=== PATIENT | female | born 2005 | race African-American/Black ===

== ENCOUNTER 2023-08-25 14:28 | Observation (INO) | payer BC, OTHER ==
[~2023-08-25] VITALS: Ht 170.2 cm; Wt 61.2 kg
--- NOTE | 2023-08-25 15:33 | ED General ---
General Chief Complaint: General Problems/Pain Stated Complaint: BLOOD CLOT Nursing Triage Note: pt ambulatory to room with pt [facility] coach. pt states she consents to her graduation coach being at bedside. this rn notifies pt that visitor can be asked to leave at anytime. pt reports she collapsed at a cross country meet in [place] and was admitted to [facility]. pt was discharged from hospital today and traveled home to [facility]. pt reports the hospital called her mother and told her they found a "blood clot in her atrium and to immediately come back to the hospital. pt denies any cp, sob, or pain anywhere. pt is a&ox4, speech normal on arrival. this rn obtained consent for medical release during triage. 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 She was running in a cross-country meet yesterday when she experienced a syncopal episode after crossing the finish line. According to her graduation coach who accompanies her, she was unresponsive after the collapse. He reports her "blood pressure was very low" during triage at the meet. She was essentially unresponsive for several minutes and then was rather confused with nonsensical speech for several minutes after regaining consciousness. When the EMS staff came to pick her up, she was rather agitated and combative. She was taken to [facility] where she was found to have rhabdomyolysis. They were concerned about acute kidney injury developing and therefore admitted her overnight. She was released this morning and was traveling back to her home in [place], [place] where she attends [employer]. She received a call back from [facility] stating that her echocardiogram was read as abnormal. That report reads as follows: "There is a large independently moving structure/membrane within the right atrium. Appears to have attachment points within the right atrium. One appears to be just above the tricuspid valve along the atrial septum. This extends to the lateral posterior wall on the right atrium." I was able to contact Dr. Ayala who was on her care team in [place]. He reports that they requested she come back to the facility for a GIGI. He additionally reported the patient was hydrated for treatment of rhabdomyolysis. Her initial CK was 22,000 and was trending down prior to discharge. Patient has no complaints at present. She denies chest pain, shortness of breath, unusual soreness, etc. She has no history of cardiac disease and no significant family history of cardiac problems or early sudden cardiac . She denies any drug or alcohol use. She denies as she just finished her menstrual cycle. She has had prior episodes of lesser severity. At her last cross-country meet she had a more mild incident that was considered heat exhaustion. She did not lose consciousness during that episode. She reports an additional syncopal episode that occurred during a cross-country meet when she was a sophomore in high school. Allergies and Home Medications Allergies Coded Allergies: No Known Drug Allergies (Unverified , 08/25/23) Patient Home Medication List Home Medication List Reviewed: Yes Review of Systems Review of Systems Constitutional: no symptoms reported EENTM: no symptoms reported Respiratory: no symptoms reported Cardiovascular: see HPI Gastrointestinal: no symptoms reported Genitourinary: no symptoms reported : No Musculoskeletal: see HPI Skin: no symptoms reported Psychiatric/Neurological: See HPI Hematologic/Lymphatic: No Symptoms Reported Immunological/Allergic: no symptoms reported Past Hecbokr-Swxqki-Czaxsh Hx Patient Social History Tobacco Use?: No Use of E-Cig and/or Vaping dev: No Substance use?: No Alcohol Use?: No Past Medical History Surgeries: No Respiratory: No Cardiac: No : No Last Menstrual Period: Aug 18, 2023 Reproductive Disorders: No Genitourinary: No Gastrointestinal: No Musculoskeletal: No Endocrine: No HEENT: No Cancer: No Psychosocial: No Integumentary: No Physical Exam Vital Signs Vital Signs - First Documented 08/25/23 14:40 Temp 37.4 Pulse 70 Resp 22 B/P (MAP) 140/81 (100) Pulse Ox 100 Capillary Refill : Height, Weight, BMI Height: '" Weight: lbs. oz. kg; 20.00 BMI Method: General Appearance: No Apparent Distress, WD/WN HEENT: PERRL/EOMI, Normal ENT Inspection, Other (Oropharynx somewhat dry) Neck: Normal Inspection; No JVD Respiratory: Lungs Clear, Normal Breath Sounds, No Accessory Muscle Use; No Crackles Cardiovascular: Regular Rate, Rhythm, No Edema, Systolic Murmur (Slight murmur at the left upper sternal border) Gastrointestinal: Non Tender, Soft; No Distended Extremity: Normal Inspection, Non Tender, No Pedal Edema Neurologic/Psychiatric: Alert, Oriented x3, No Motor/Sensory Deficits, Normal Mood/Affect, automobile radiator mechanic II-XII Norm as Tested Skin: Normal Color, Warm/Dry Progress/Results/Core Measures Suspected Sepsis SIRS Temperature: Pulse: 70 Respiratory Rate: 22 Laboratory Tests 08/25/23 14:53: White Blood Count 6.9 Blood Pressure 140 /81 Mean: 100 Laboratory Tests 08/25/23 14:53: Creatinine 0.86, Platelet Count 260, Total Bilirubin 1.0 Results/Orders Lab Results Laboratory Tests Test 08/25/23 14:53 08/25/23 18:16 Range/Units White Blood Count 6.9 4.3-11.0 10^3/uL Red Blood Count 5.07 3.80-5.11 10^6/uL Hemoglobin 11.6 11.5-16.0 g/dL Hematocrit 36 35-52 % Mean Corpuscular Volume 72 L 80-99 fL Mean Corpuscular Hemoglobin 23 L 25-34 pg Mean Corpuscular Hemoglobin Concent 32 32-36 g/dL Red Cell Distribution Width 14.0 10.0-14.5 % Platelet Count 260 130-400 10^3/uL Mean Platelet Volume 11.9 9.0-12.2 fL Immature Granulocyte % (Auto) 0 % Neutrophils (%) (Auto) 57 42-75 % Lymphocytes (%) (Auto) 33 12-44 % Monocytes (%) (Auto) 7 0-12 % Eosinophils (%) (Auto) 3 0-10 % Basophils (%) (Auto) 0 0-10 % Neutrophils # (Auto) 3.9 1.8-7.8 10^3/uL Lymphocytes # (Auto) 2.3 1.0-4.0 10^3/uL Monocytes # (Auto) 0.5 0.0-1.0 10^3/uL Eosinophils # (Auto) 0.2 0.0-0.3 10^3/uL Basophils # (Auto) 0.0 0.0-0.1 10^3/uL Immature Granulocyte # (Auto) 0.0 0.0-0.1 10^3/uL D-Dimer 0.44 0.00-0.49 UG/ML Sodium Level 140 135-145 MMOL/L Potassium Level 3.4 L 3.6-5.0 MMOL/L Chloride Level 109 H 98-107 MMOL/L Carbon Dioxide Level 20 L 21-32 MMOL/L Anion Gap 11 5-14 MMOL/L Blood Urea Nitrogen 7 7-18 MG/DL Creatinine 0.86 0.60-1.30 MG/DL Estimat Glomerular Filtration Rate 100 BUN/Creatinine Ratio 8 Glucose Level 116 H 70-105 MG/DL Calcium Level 9.9 8.5-10.1 MG/DL Corrected Calcium 9.6 8.5-10.1 MG/DL Magnesium Level 1.8 1.6-2.4 MG/DL Total Bilirubin 1.0 0.1-1.0 MG/DL Aspartate Amino Transf (AST/SGOT) 409 H 5-34 U/L Alanine Aminotransferase (ALT/SGPT) 182 H 0-55 U/L Alkaline Phosphatase 43 40-136 U/L Total Creatine Kinase 65011 H 29-168 U/L Total Protein 7.0 6.4-8.2 GM/DL Albumin 4.4 3.2-4.5 GM/DL Serum Test, Qualitative NEGATIVE NEGATIVE Urine Color YELLOW Urine Clarity CLEAR Urine pH 5.5 5-9 Urine Specific [place] 1.010 L 1.016-1.022 Urine Protein TRACE NEGATIVE Urine Glucose (UA) NEGATIVE NEGATIVE Urine Ketones NEGATIVE NEGATIVE Urine Nitrite NEGATIVE NEGATIVE Urine Bilirubin NEGATIVE NEGATIVE Urine Urobilinogen 0.2 < = 1.0 MG/DL Urine Leukocyte Esterase NEGATIVE NEGATIVE Urine RBC (Auto) 1+ H NEGATIVE Urine RBC RARE /HPF Urine WBC 0-2 /HPF Urine Squamous Epithelial Cells 0-2 /HPF Urine Crystals NONE /LPF Urine Bacteria TRACE /HPF Urine Casts NONE /LPF Urine Mucus NEGATIVE /LPF Urine Culture Indicated NO Urine Opiates Screen NEGATIVE NEGATIVE Urine Oxycodone Screen NEGATIVE NEGATIVE Urine Methadone Screen NEGATIVE NEGATIVE Urine Propoxyphene Screen NEGATIVE NEGATIVE Urine Barbiturates Screen NEGATIVE NEGATIVE Ur Tricyclic Antidepressants Screen NEGATIVE NEGATIVE Urine Phencyclidine Screen NEGATIVE NEGATIVE Urine Amphetamines Screen NEGATIVE NEGATIVE Urine Methamphetamines Screen NEGATIVE NEGATIVE Urine Benzodiazepines Screen NEGATIVE NEGATIVE Urine Cocaine Screen NEGATIVE NEGATIVE Urine Cannabinoids Screen NEGATIVE NEGATIVE My Orders Orders - CHERRI TREVINO MD Cbc And Automated Diff (08/25/23 15:33) Comprehensive Metabolic Panel (08/25/23 15:33) Creatine Kinase (08/25/23 15:33) Hcg,Qualitative Serum (08/25/23 15:33) Magnesium (08/25/23 15:33) Ekg Tracing (08/25/23 15:34) Monitor-Rhythm Ecg Trace Only (08/25/23 15:34) Lactated Ringers 1,000 Ml (Lactated Ring (08/25/23 16:45) Drug Screen Stat (Urine) (08/25/23 18:04) Ua Culture If Indicated (08/25/23 18:04) Fibrin Degradation Products (08/25/23 18:42) Lactated Ringers 1,000 Ml (Lactated Ring (08/25/23 19:30) Ed Admission (Communication) (08/25/23 20:02) Medications Given in ED Current Medications Medications Dose Ordered Sig/Arturo Route Start Time Stop Time Status Last Admin Dose Admin Lactated Ringer's 1,000 ml @ 0 mls/hr Q0M ONCE IV 08/25/23 16:45 08/25/23 16:46 DC 08/25/23 16:57 999 MLS/HR Lactated Ringer's 1,000 ml @ 0 mls/hr Q0M ONCE IV 08/25/23 19:30 08/25/23 19:31 DC 08/25/23 19:42 1,000 MLS/HR Vital Signs/I&O 08/25/23 08/25/23 14:40 20:05 Temp 37.4 Pulse 70 57 Resp 22 B/P (MAP) 140/81 (100) 125/81 Pulse Ox 100 100 Capillary Refill : Blood Pressure Mean: 100 Progress Note #1: Time: 17:44 Progress Note Patient has been interviewed and examined. I also interviewed her cross-country graduation coach, Senior Accountant Cpa Gricel Jeffries, who witnessed the event and has attended to her care since then. Exam is relatively unremarkable except oropharynx is slightly dry and there is a slight murmur at the upper left sternal margin. Labs were obtained, reviewed, and interpreted by me. CBC was unremarkable except for low MCV. CMP was notable for slight hypokalemia with potassium of 3.4, normal renal function, elevated AST at 409, elevated ALT of 182, normal alk phos and bilirubin. Serum test was negative. CK was markedly elevated at 32,165. Patient is receiving 1 L of LR. After discussing this case with Dr. Ayala in [place], I consulted Dr. Méndez, express manager on-call at our facility. He is uncertain of the etiology of the abnormal echocardiogram report. He is concerned a congenital abnormality may be involved. He is therefore recommending transfer to a higher level of care with advanced cardiac speci alists. He believes [facility] would be a reasonable option. I have discussed the situation with the patient, her mother, and her graduation coach. We have elected to proceed with [facility] due to their level of advanced cardiac care and proximity to [place]. Because of patient's severe rhabdomyolysis, transfer to an appropriate facility should be pursued tonight. Patient is agreeable. I have c ontacted the [facility] transfer center and am awaiting a callback. Progress Note #2: Progress Note I received a call back from Dr. Connell, express manager at [facility] who has a focus on congenital abnormalities. Based on the description of the echocardiogram, she believes the abnormality in the right atrium is likely an incidental finding not related to patient's symptoms. We discussed the potential for this abnormality to be a clot. She believes this is unlikely unless the patient has PE. She discerned the patient did not need emergent transfer to a tertiary care facility. She plans to follow-up with the patient on an outpatient basis to schedule GIGI. Patient should have activity restrictions in the meantime with no running or other strenuous activity. Based on this conversation, I contacted hospital team in [place] again to inquire about work-up for PE. Neither D-dimer nor CT angiogram had been performed in [place]. I added a D-dimer which was negative, effectively ruling out PE and thrombus. Since transfer was declined by [facility], I sought admission with Dr. Grant, hospitalist, at this facility to treat the rhabdomyolysis and monitor the elevated transaminases. Dr. Grant was agreeable as was the patient. Bridging orders were written. A second liter of LR was ordered to start in the emergency room per Dr. Grant's request. Further labs including urinalysis and urine toxicology screen were negative upon my review and interpretation. Since transfer is not excepted, I did inquire again with Dr. Méndez regarding performing GIGI locally. He is deferring to [facility] due to their expertise and congenital heart abnormalities. ECG Initial ECG Impression Date: Aug 25, 2023 Initial ECG Impression Time: 15:55 Initial ECG Rate: 66 Initial ECG Rhythm: Normal Sinus Initial ECG Intervals: Normal Initial ECG Impression: Normal Comment Normal sinus rhythm with no ST elevation or depression. No abnormal intervals or axis deviation. Departure Communication (Admissions) Time/Spoke to Admitting Phy: 19:20 Dr. Grant Impression Primary Impression: Syncope and collapse Additional Impressions: Abnormal echocardiogram Rhabdomyolysis Qualified Codes: T79.6XXD - Traumatic ischemia of muscle, subsequent encounter Elevated liver transaminase level Disposition: ADMITTED INPATIENT Condition: Stable Admissions Decision to Admit Reason: Admit from ER (General) Decision to Admit/Date: Aug 25, 2023 Time/Decision to Admit Time: 19:20 Departure-Patient Inst. Referrals: NO,LOCAL PHYSICIAN (PCP) Primary Care Physician CHERRI TREVINO MD Aug 25, 2023 15:33
[2023-08-25 15:42] LABS: BASOPHILS % (AUTO) 0 % (0-10); EOSINOPHILS # (AUTO) 0.2 10^3/uL (0.0-0.3); EOSINOPHILS % (AUTO) 3 % (0-10); HEMATOCRIT 36 % (35-52); HEMOGLOBIN 11.6 g/dL (11.5-16.0); LYMPHOCYTES # (AUTO) 2.3 10^3/uL (1.0-4.0); LYMPHOCYTES % (AUTO) 33 % (12-44); MEAN CORPUSCULAR HEMOGLOBIN 23 pg (25-34); MEAN CORPUSCULAR HGB CONC 32 g/dL (32-36); MEAN CORPUSCULAR VOLUME 72 fL (80-99); MEAN PLATELET VOLUME 11.9 fL (9.0-12.2); MONOCYTES # (AUTO) 0.5 10^3/uL (0.0-1.0); MONOCYTES % (AUTO) 7 % (0-12); NEUTROPHILS # (AUTO) 3.9 10^3/uL (1.8-7.8); NEUTROPHILS % (AUTO) 57 % (42-75); PLATELET COUNT 260 10^3/uL (130-400); WHITE BLOOD COUNT 6.9 10^3/uL (4.3-11.0)
[2023-08-25 15:45] LABS: ALBUMIN 4.4 GM/DL (3.2-4.5); POTASSIUM 3.4 MMOL/L (3.6-5.0)
[2023-08-25 15:46] LABS: CALCIUM 9.9 MG/DL (8.5-10.1)
[2023-08-25 15:51] LABS: CREATININE SERUM 0.86 MG/DL (0.60-1.30)
[2023-08-25 15:53] LABS: MAGNESIUM 1.8 MG/DL (1.6-2.4)
[2023-08-25] MEDS ORDERED: LACTATED RINGERS 1,000 ML 1,000 ML IV ONE ×2 (16:45→19:30)
[2023-08-25 18:37] LABS: CLARITY,URINE CLEAR; COLOR,URINE YELLOW; GLUCOSE, URINE (UA) NEGATIVE (NEGATIVE); KETONES,URINE NEGATIVE (NEGATIVE); NITRITE,URINE NEGATIVE (NEGATIVE); PH,URINE 5.5 (5-9); PROTEIN,URINE TRACE (NEGATIVE)
[2023-08-25 18:38] LABS: BACTERIA,URINE TRACE /HPF; BILIRUBIN,URINE NEGATIVE (NEGATIVE); LEUKOCYTE ESTERASE ,URINE NEGATIVE (NEGATIVE); RBC,URINE RARE /HPF; WBC,URINE 0-2 /HPF
[2023-08-25 18:39] LABS: SQUAMOUS EPITHELIAL CELL,UR 0-2 /HPF
[2023-08-25 18:41] LABS: AMPHETAMINE SCREEN, URINE NEGATIVE (NEGATIVE); BARBITURATE SCREEN URINE NEGATIVE (NEGATIVE); CANNABINOID SCREEN, URINE NEGATIVE (NEGATIVE); COCAINE SCREEN URINE NEGATIVE (NEGATIVE); METHADONE STAT NEGATIVE (NEGATIVE); OPIATE SCREEN URINE NEGATIVE (NEGATIVE); OXYCODONE STAT NEGATIVE (NEGATIVE); PROPOXYPHENE STAT NEGATIVE (NEGATIVE); TRICYCLIC ANTIDEPRESSANTS SCRE NEGATIVE (NEGATIVE)
[2023-08-25 20:54] VITALS: BP 133/78
[2023-08-25] MEDS: LACTATED RINGERS 1,000 ML 1,000 ML IV SCH (21:00)
[2023-08-25] MEDS ORDERED: ONDANSETRON INJECTION 4 MG/2 ML (SDV) IV PRN ×2 (21:45→22:00)
[2023-08-25] MEDS ORDERED: ANTACID SUSPENSION 30 ML UDC PO PRN (22:00)
[2023-08-25] MEDS ORDERED: LACTULOSE SYRUP 10GM/15ML 30ML UDC PO PRN (22:00)
[2023-08-25] MEDS ORDERED: MELATONIN 3 MG TABLET PO PRN (22:00)
[2023-08-25] MEDS ORDERED: ONDANSETRON 4 MG ORAL DISSOLVE TABLET PO PRN (22:00)
[2023-08-25] MEDS ORDERED: CALCIUM CARBONATE 500 MG CHEW TABLET PO PRN (22:00)
[2023-08-25] MEDS ORDERED: diphenhydrAMINE 25 MG TABLET PO PRN (22:00)
[2023-08-25] MEDS ORDERED: ACETAMINOPHEN 325 MG TABLET PO PRN (22:00)
[2023-08-25] MEDS ORDERED: BISACODYL 10 MG SUPPOSITORY PR PRN (22:00)
[2023-08-25] MEDS ORDERED: MILK OF MAGNESIA 400 MG/5 ML 30 ML UDC PO PRN (22:00)
[2023-08-25] MEDS ORDERED: diphenhydrAMINE INJ 50 MG/ML VIAL IVP PRN (22:00)
[2023-08-25 23:32] VITALS: BP 106/65
[2023-08-26] MEDS: LACTATED RINGERS 1,000 ML 1,000 ML IV SCH ×5 (01:18→20:56)
[2023-08-26 03:39] VITALS: BP 112/71
[2023-08-26 04:59] LABS: BASOPHILS % (AUTO) 0 % (0-10); EOSINOPHILS # (AUTO) 0.2 10^3/uL (0.0-0.3); EOSINOPHILS % (AUTO) 3 % (0-10); HEMATOCRIT 30 % (35-52); HEMOGLOBIN 9.8 g/dL (11.5-16.0); LYMPHOCYTES # (AUTO) 3.7 10^3/uL (1.0-4.0); LYMPHOCYTES % (AUTO) 46 % (12-44); MEAN CORPUSCULAR HEMOGLOBIN 23 pg (25-34); MEAN CORPUSCULAR HGB CONC 33 g/dL (32-36); MEAN CORPUSCULAR VOLUME 71 fL (80-99); MEAN PLATELET VOLUME 11.5 fL (9.0-12.2); MONOCYTES # (AUTO) 0.5 10^3/uL (0.0-1.0); MONOCYTES % (AUTO) 7 % (0-12); NEUTROPHILS # (AUTO) 3.6 10^3/uL (1.8-7.8); NEUTROPHILS % (AUTO) 45 % (42-75); PLATELET COUNT 221 10^3/uL (130-400)
[2023-08-26 05:10] LABS: INR 1.1 (0.8-1.4); PROTHROMBIN TIME PATIENT 13.9 SEC (12.2-14.7)
[2023-08-26 05:22] LABS: ALBUMIN 3.3 GM/DL (3.2-4.5); BILIRUBIN,TOTAL 0.9 MG/DL (0.1-1.0); CALCIUM 8.5 MG/DL (8.5-10.1); CREATININE SERUM 0.87 MG/DL (0.60-1.30); MAGNESIUM 1.6 MG/DL (1.6-2.4); POTASSIUM 3.5 MMOL/L (3.6-5.0); TOTAL PROTEIN 5.5 GM/DL (6.4-8.2)
[2023-08-26 07:43] VITALS: BP 121/75
[2023-08-26] MEDS: DOCUSATE SODIUM 100 MG CAPSULE PO SCH ×2 (08:37→20:36)
[2023-08-26] MEDS: SENNOSIDES 8.6 MG TABLET PO SCH ×2 (08:37→20:36)
--- NOTE | 2023-08-26 11:00 | History & Physical-Hospitalist ---
History of Present Illness HPI/Chief Complaint Patient is a 17-year-old -[place] female who presented to the hospital due to abnormal echo report. 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 Reportedly she had just met a personal record on her 5K but then passed out shortly after. She reports that she was told she had a seizure though records from the ER states she was admitted for rhabdomyolysis. She was discharged home because her labs are looking better though I am not been able to see these. On her way home she was called by the hospital and told that her echo was abnormal. Per ER report her echo report read as ""There is a large independently moving structure/membrane within the right atrium. Appears to have attachment points within the right atrium. One appears to be just above the tricuspid valve along the atrial septum. This extends to the lateral posterior wall on the right atrium." She was also found to still have an eleva rachel CK. Dr. Coyle was consulted and initially recommended referring patient to for structural heart specialty evaluation but after the ER spoke to they declined the transfer and recommended outpatient follow-up. Because her CK was still elevated she was admitted for IV fluids. This morning she reports feeling better and has no achiness or stiffness. She is eating and has no nausea or vom iting with that. Source: patient Date Seen 08/26/23 Time Seen by a Provider: 10:55 Attending Physician Rima,Local Physician PCP Admitting Physician: Najma Grant MD Attending Physician: Najma Grant MD Referring Physician Date of Admission Aug 25, 2023 at 20:08 Home Medications & Allergies Home Medications Reviewed patient Home Medication Reconciliation performed by pharmacy medication reconciliations landfill gas technician and/or nursing. Patients Allergies have been reviewed. Allergies Allergies Coded Allergies No Known Drug Allergies (Eybozbfkce35/1/23) Past Pusfrph-Tkrcau-Mqlnnz Hx Patient Social History Employed/Student: student, full-time Tobacco Use?: No Smoking Status: Never a Smoker Smokeless Tobacco Frequency: Never a User Use of E-Cig and/or Vaping dev: No Substance use?: No Alcohol Use?: No Pt feels they are or have been: No Immunizations Up To Date Tetanus Booster (TDap): Unknown Current Status Advance Directives: No Communicates: Verbally Primary Language: Maltese Preferred Spoken Language: Maltese Is interpretation needed?: No Review of Systems Constitutional: see HPI Physical Exam Physical Exam Vital Signs Vital Signs - First Documented 08/25/23 08/25/23 14:40 20:54 Temp 37.4 Pulse 70 Resp 22 B/P (MAP) 140/81 (100) Pulse Ox 100 O2 Delivery Room Air Capillary Refill : Height, Weight, BMI Height: '" Weight: lbs. oz. kg; 21.23 BMI Method: General Appearance: No Apparent Distress, WD/WN Respiratory: Lungs Clear, No Respiratory Distress Cardiovascular: Regular Rate, Rhythm, No Murmur Gastrointestinal: Normal Bowel Sounds, Soft Neurologic/Psychiatric: Alert, Oriented x3 Results Results/Procedures Labs Laboratory Tests 08/25/23 14:53 08/26/23 04:42 Patient resulted labs reviewed. Assessment/Plan Admission Diagnosis Rhabdomyolysis Admission Status: Observation Assessment and Plan Rhabdomyolysis CK up to 32k last night Down to 15k Continue IVF and trend Creatinine normal Hopefully home tomorrow if doing well Abnormal echo Cardiology consulted, appreciate recs D-dimer negative Spoke with Dr Méndez who will see in consultation Attempt to get her appt with for structural heart team Discussed need to avoid activity until after [facility] exam SRIKANTH LEE MD Aug 26, 2023 11:00
[2023-08-26] MEDS ORDERED: IBUP-30 PO (11:02)
[2023-08-26 11:46] VITALS: BP 124/73
--- NOTE | 2023-08-26 15:19 | Consultation-Cardiology ---
HPI-Cardiology Cardiology Consultation: Date of Consultation 08/26/23 Time Seen by a Provider: 09:40 Date of Admission Attending Physician Rima,Local Physician Admitting Physician Admitting Physician: Najma Grant MD Attending Physician: Arely Dhaliwal MD Consulting Physician BREEZY GARCIA MD, MA, FACP, FACC, [facility], [facility] HPI: Chief Complaint: Reason for Card consult: Abnormal echo in [place], [place] 17 yo cierra who passed out as she crossed the finish line in a 5K run in [place]. She is not able to provide details. She is reported to have been unconscious for a few minutes. When she woke up s he was confused of a few more. She is reported to have been agitated when EMS came to pick her up. She was hospitalized at [facility], [place], [place]. She was also found to have rhabdomyolysis at that hospital. She was d/c'd the next day, but was called back because of an abnormal finding on echo that she had had done at that hospital. She chose not to go to [place] and came to our hosp instead. She reports that she has also had a similar syncopal episode 4 years ago about 10 min after she had finished a race The echo report from [facility] reads as follows: "There is a large independently moving structure/membrane within the right atrium. Appears to have attachment points within the right atrium. One appears to be just above the tricuspid valve along the atrial septum. This extends to the lateral posterior wall on the right atrium." Our ER physician Dr Irene contacted Dr. Ayala who was on her care team in [place]. He reported that they requested she come back to the facility for a GIGI. She does not report cp or palp or shortness of breath or swelling. She does not smoke or use drugs/alcohol. She does not report fever/chills. Review of Systems-Cardiology Review of Systems Constitutional: As described under HPI Eyes: No vision change Ears/Nose/Throat: No ear discharge, No nasal drainage, No recent hearing loss Respiratory: As described under HPI Cardiovascular: As described under HPI Gastrointestinal: As described under HPI Genitourinary: No dysuria, No hematuria, No urine frequency changes : No Musculoskeletal: No back pain Skin: No rash Psychiatric/Neurological: As described under HPI; No anxiety, No depression, No seizure, No focal weakness Hematologic: No bleeding abnormalities [id number] Hx Patient Social History Employed/Student: student, full-time Smoking Status: Never a Smoker Alcohol Use?: No Pt feels they are or have been: No Past Medical History PMH As described under Assessment. Family Medical History Family Medical History: She does not report fam h/o early CAD or SCD Allergies and Home Medications Allergies Coded Allergies: No Known Drug Allergies (Unverified , 08/25/23) Patient Home Medication List Home Medication List Reviewed: Yes Ibuprofen (Advil) 200 Mg Tablet, 400-600 MG PO Q8H PRN for PAIN-MILD (1-4), (Reported) Entered as Reported by: LETICIA MCGUIRE on 08/26/23 1102 Last Action: Reviewed Physical Exam-Cardiology Physical Exam Vital Signs/I&O 08/26/23 08/26/23 08/26/23 08/26/23 03:39 07:41 07:43 08:00 Temp 36.4 36.5 Pulse 55 80 84 Resp 18 16 B/P (MAP) 112/71 (85) 121/75 (90) Pulse Ox 100 100 O2 Delivery Room Air Room Air Room Air 08/26/23 08/26/23 11:46 12:53 Temp 37.0 Pulse 63 49 Resp 14 B/P (MAP) 124/73 (90) Pulse Ox 99 O2 Delivery Room Air 08/26/23 00:00 Intake Total 1000 ml Balance 1000 ml Capillary Refill : Constitutional: AAO x 3, well-developed, well-nourished, other (thin-appearing) HEENT: PERRL, EOMI, hearing is well preserved; No xanthelasmas are seen Neck: carotid pulses are 2 + bilaterally, with good upstrokes Respiratory: No accessory muscle use; chest expansion is symmetric, chest is bilaterally symmetric, other (good, bilateral air entry) Cardiovascular: regular rate-rhythm, S1 and S2, systolic murmur (2/6 MSM) Gastrointestinal: No tender; soft; No guarding, No rebound; audible bowel sounds Extremities: No clubbing, No cyanosis, No significant edema Neurologic/Psychiatric: oriented x 3, other (moves all limbs equally) Skin: No rash on exposed areas, No ulcerations on exposed areas Data Review Labs Laboratory Tests 08/25/23 18:16: Urine Color YELLOW, Urine Clarity CLEAR, Urine pH 5.5, Urine Specific Tyler 1.010L, Urine Protein TRACE, Urine Glucose (UA) NEGATIVE, Urine Ketones NEGATIVE, Urine Nitrite NEGATIVE, Urine Bilirubin NEGATIVE, Urine Urobilinogen 0.2, Urine Leukocyte Esterase NEGATIVE, Urine RBC (Auto) 1+H, Urine RBC RARE, Urine WBC 0-2, Urine Squamous Epithelial Cells 0-2, Urine Crystals NONE, Urine Bacteria TRACE, Urine Casts NONE, Urine Mucus NEGATIVE, Urine Culture Indicated NO, Urine Opiates Screen NEGATIVE, Urine Oxycodone Screen NEGATIVE, Urine Methadone Screen NEGATIVE, Urine Propoxyphene Screen NEGATIVE, Urine Barbiturates Screen NEGATIVE, Ur Tricyclic Antidepressants Screen NEGATIVE, Urine Phencyclidine Screen NEGATIVE, Urine Amphetamines Screen NEGATIVE, Urine Methamphetamines Screen NEGATIVE, Urine Benzodiazepines Screen NEGATIVE, Urine Cocaine Screen NEGATIVE, Urine Cannabinoids Screen NEGATIVE 08/26/23 04:42: White Blood Count 8.0, Red Blood Count 4.22, Hemoglobin 9.8L, Hematocrit 30L, Mean Corpuscular Volume 71L, Mean Corpuscular Hemoglobin 23L, Mean Corpuscular Hemoglobin Concent 33, Red Cell Distribution Width 13.8, Platelet Count 221, Mean Platelet Volume 11.5, Immature Granulocyte % (Auto) 0, Neutrophils (%) (Auto) 45, Lymphocytes (%) (Auto) 46H, Monocytes (%) (Auto) 7, Eosinophils (%) (Auto) 3, Basophils (%) (Auto) 0, Neutrophils # (Auto) 3.6, Lymphocytes # (Auto) 3.7, Monocytes # (Auto) 0.5, Eosinophils # (Auto) 0.2, Basophils # (Auto) 0.0, Immature Granulocyte # (Auto) 0.0, Prothrombin Time 13.9, INR Comment 1.1, Sodium Level 142, Potassium Level 3.5L, Chloride Level 109H, Carbon Dioxide Level 25, Anion Gap 8, Blood Urea Nitrogen 10, Creatinine 0.87, Estimat Glomerular Filtration Rate 98, BUN/Creatinine Ratio 11, Glucose Level 100, Calcium Level 8.5, Corrected Calcium 9.1, Magnesium Level 1.6, Ferritin 39.2, Total Bilirubin 0.9, Aspartate Amino Transf (AST/SGOT) 223H, Alanine Aminotransferase (ALT/SGPT) 122H, Alkaline Phosphatase 34L, Total Creatine Kinase 22315A, Total Protein 5.5L, Albumin 3.3 Laboratory Tests 08/25/23 14:53 08/26/23 04:42 A/P-Cardiology Assessment/Admission Diagnosis Syncope, exertion-related, etiology undetermined - ECG on 08/25/23 at this hospital does not show QT prolongation or evidence of Brugada - Echo at [facility] in [place], [place] on 08/25/23 is reported to have shown a membrane in the right atrium, but no other abnormality was reported (the actual report is awaited) Rhabdomyolysis Discussion and Recomendations * Observation on tele * Treat rhabdo * Advised off sports or physical exertion until further notice * Advised to f/u with adult congenital heart disease specialist for w/u for syncope and echo abnormality * Discussed with BREEZY Spencer MD FACP [facility] Aug 26, 2023 15:19
[2023-08-26 16:00] VITALS: BP 114/69
[2023-08-26 19:16] VITALS: BP 110/70
[2023-08-26 23:37] VITALS: BP 101/63
[2023-08-27] MEDS: LACTATED RINGERS 1,000 ML 1,000 ML IV SCH ×4 (02:26→17:19)
[2023-08-27 03:52] VITALS: BP 106/58
[2023-08-27 05:54] LABS: HEMATOCRIT 30 % (35-52); HEMOGLOBIN 9.7 g/dL (11.5-16.0); MEAN CORPUSCULAR HEMOGLOBIN 23 pg (25-34); MEAN CORPUSCULAR HGB CONC 32 g/dL (32-36); MEAN CORPUSCULAR VOLUME 72 fL (80-99); MEAN PLATELET VOLUME 11.8 fL (9.0-12.2); PLATELET COUNT 217 10^3/uL (130-400); WHITE BLOOD COUNT 7.4 10^3/uL (4.3-11.0)
[2023-08-27 06:24] LABS: CALCIUM 8.8 MG/DL (8.5-10.1); CREATININE SERUM 0.85 MG/DL (0.60-1.30); POTASSIUM 3.6 MMOL/L (3.6-5.0)
[2023-08-27 07:31] VITALS: BP 130/85
[2023-08-27] MEDS: DOCUSATE SODIUM 100 MG CAPSULE PO SCH (07:37)
[2023-08-27] MEDS: SENNOSIDES 8.6 MG TABLET PO SCH (07:37)
--- NOTE | 2023-08-27 09:52 | Discharge Inst-Simple/Standard ---
Discharge Inst-Standard Patient Instructions/Follow Up Plan of Care/Instructions/FU: Please continue to take your medications as written. Please follow up with [facility] doctor to follow up this hospital stay and with [facility] as scheduled. Activity as Tolerated: Yes Discharge Diet: No Restrictions Return to The Hospital For: Chest pain, heart racing, passing out or near passing out, shortness of breath, fever, weakness, if you feel you are getting worse. SRIKANTH LEE MD Aug 27, 2023 09:52
--- NOTE | 2023-08-27 10:05 | Progress Note - Cardiology ---
Cardiology SOAP Progress Note Subjective: Lying in bed Denies any c/o CP, SOB or palpitations Mother at the bedside Objective: I&O/Vital Signs 08/27/23 08/27/23 08/27/23 08/27/23 03:52 07:14 07:31 08:00 Temp 36.4 36.4 Pulse 55 96 73 Resp 16 17 B/P (MAP) 106/58 (74) 130/85 (100) Pulse Ox 100 100 O2 Delivery Room Air Room Air Room Air 08/27/23 08/27/23 11:40 12:00 Temp 36.5 Pulse 70 86 Resp 17 B/P (MAP) 127/83 (98) Pulse Ox 99 O2 Delivery Room Air 08/27/23 00:00 Intake Total 2320 ml Balance 2320 ml Constitutional: AAO x 3, well-developed, well-nourished, other (thin-appearing) Respiratory: No accessory muscle use; chest expansion is symmetric, chest is bilaterally symmetric, other (good, bilateral air entry) Cardiovascular: regular rate-rhythm, S1 and S2, systolic murmur (2/6 MSM) Gastrointestional: No tender; soft; No guarding, No rebound; audible bowel sounds Extremities: No clubbing, No cyanosis, No significant edema Neurologic/Psychiatric: oriented x 3, other (moves all limbs equally) Skin: No rash on exposed areas, No ulcerations on exposed areas Results/Procedures: Labs Laboratory Tests 08/27/23 05:28: White Blood Count 7.4, Red Blood Count 4.22, Hemoglobin 9.7L, Hematocrit 30L, Mean Corpuscular Volume 72L, Mean Corpuscular Hemoglobin 23L, Mean Corpuscular Hemoglobin Concent 32, Red Cell Distribution Width 13.9, Platelet Count 217, Mean Platelet Volume 11.8, Sodium Level 141, Potassium Level 3.6, Chloride Level 108H, Carbon Dioxide Level 25, Anion Gap 8, Blood Urea Nitrogen 11, Creatinine 0.85, Estimat Glomerular Filtration Rate 101, BUN/Creatinine Ratio 13, Glucose Level 93, Calcium Level 8.8, Total Creatine Kinase 9373H A/P: Assessment: Syncope, exertion-related, etiology undetermined - ECG on 08/25/23 at this hospital does not show QT prolongation or evidence of Brugada - Echocardiogram at [facility] in [place], [place] on 08-25-23 showed LVEF 55-60%. There is a large independently moving structure/membrane within the RA. Appears to have attachment points within the RA. One appears to be just above the tricuspid valve along the atrial septum. This extends to the lateral-posterior wall fo the RA. Small pericardial effusion. Mild MR. Trace TR. Normal diastolic dysfunction Rhabdomyolysis Plan: * Observation on tele * Treat rhabdo * Advised off sports or physical exertion until further notice * Advised to f/u with adult congenital heart disease specialist for w/u for syncope and echo abnormality * Echocardiogram from [facility] in [place] reviewed ZELALEM RANDHAWA Aug 27, 2023 10:05
[2023-08-27 11:40] VITALS: BP 127/83
--- NOTE | 2023-08-27 12:29 | Discharge Summary ---
Diagnosis/Chief Complaint Date of Admission Aug 25, 2023 at 20:08 Date of Discharge Discharge Date: Aug 27, 2023 Admission Diagnosis Rhabdomyolysis Primary Care No,Local Physician Discharge Summary Discharge Physical Exam Allergies: Coded Allergies: No Known Drug Allergies (Unverified , 08/25/23) Vitals & I&Os Vital Signs Date Time Temp Pulse Resp B/P (MAP) Pulse Ox O2 Delivery O2 Flow Rate FiO2 08/27/23 11:40 36.5 70 17 127/83 (98) 99 Room Air Hospital Course Labs (last 24 hrs) Laboratory Tests 08/27/23 05:28: White Blood Count 7.4, Red Blood Count 4.22, Hemoglobin 9.7L, Hematocrit 30L, Mean Corpuscular Volume 72L, Mean Corpuscular Hemoglobin 23L, Mean Corpuscular Hemoglobin Concent 32, Red Cell Distribution Width 13.9, Platelet Count 217, Mean Platelet Volume 11.8, Sodium Level 141, Potassium Level 3.6, Chloride Level 108H, Carbon Dioxide Level 25, Anion Gap 8, Blood Urea Nitrogen 11, Creatinine 0.85, Estimat Glomerular Filtration Rate 101, BUN/Creatinine Ratio 13, Glucose Level 93, Calcium Level 8.8, Total Creatine Kinase 9373H Patient resulted labs reviewed. Pending Labs Laboratory Tests 08/27/23 05:28: White Blood Count 7.4, Red Blood Count 4.22, Hemoglobin 9.7, Hematocrit 30, Mean Corpuscular Volume 72, Mean Corpuscular Hemoglobin 23, Mean Corpuscular Hemoglobin Concent 32, Red Cell Distribution Width 13.9, Platelet Count 217, Mean Platelet Volume 11.8, Sodium Level 141, Potassium Level 3.6, Chloride Level 108, Carbon Dioxide Level 25, Anion Gap 8, Blood Urea Nitrogen 11, Creatinine 0.85, Estimat Glomerular Filtration Rate 101, BUN/Creatinine Ratio 13, Glucose Level 93, Calcium Level 8.8, Total Creatine Kinase 9373 Discharge Home Medications: Active Scripts Active Reported Advil (Ibuprofen) 200 Mg Tablet 400-600 Mg PO Q8H PRN Instructions to patient/family Please see electronic discharge instructions given to patient. SRIKANTH LEE MD Aug 27, 2023 12:29
--- NOTE | 2023-08-27 13:38 | Progress Note - Cardiology ---
Cardiology SOAP Progress Note Subjective: No cp or palp or syncope No n/v/d No focal weakness No gen weakness No malaise No muscle or joint discomfort Wishes to go home Objective: I&O/Vital Signs 08/27/23 08/27/23 08/27/23 08/27/23 03:52 07:14 07:31 08:00 Temp 36.4 36.4 Pulse 55 96 73 Resp 16 17 B/P (MAP) 106/58 (74) 130/85 (100) Pulse Ox 100 100 O2 Delivery Room Air Room Air Room Air 08/27/23 08/27/23 11:40 12:00 Temp 36.5 Pulse 70 86 Resp 17 B/P (MAP) 127/83 (98) Pulse Ox 99 O2 Delivery Room Air 08/27/23 00:00 Intake Total 2320 ml Balance 2320 ml Constitutional: AAO x 3, well-developed, well-nourished, other (thin-appearing) Respiratory: No accessory muscle use; chest expansion is symmetric, chest is bilaterally symmetric, other (good, bilateral air entry) Cardiovascular: regular rate-rhythm, S1 and S2, systolic murmur (2/6 MSM) Gastrointestional: No tender; soft; No guarding, No rebound; audible bowel sounds Extremities: No clubbing, No cyanosis, No significant edema Neurologic/Psychiatric: oriented x 3, other (moves all limbs equally) Skin: No rash on exposed areas, No ulcerations on exposed areas Results/Procedures: Labs Laboratory Tests 08/27/23 05:28: White Blood Count 7.4, Red Blood Count 4.22, Hemoglobin 9.7L, Hematocrit 30L, Mean Corpuscular Volume 72L, Mean Corpuscular Hemoglobin 23L, Mean Corpuscular Hemoglobin Concent 32, Red Cell Distribution Width 13.9, Platelet Count 217, Mean Platelet Volume 11.8, Sodium Level 141, Potassium Level 3.6, Chloride Level 108H, Carbon Dioxide Level 25, Anion Gap 8, Blood Urea Nitrogen 11, Creatinine 0.85, Estimat Glomerular Filtration Rate 101, BUN/Creatinine Ratio 13, Glucose Level 93, Calcium Level 8.8, Total Creatine Kinase 9373H Laboratory Tests 08/25/23 14:53 08/26/23 04:42 08/27/23 05:28 A/P: Assessment: Syncope, post-exertion, etiology undetermined - ECG on 08/25/23 at this hospital does not show QT prolongation or evidence of Brugada - Echocardiogram at [facility] in [place], [place] on 08-25-23 showed LVEF 55-60%. There is a large independently moving structure/membrane within the RA. Appears to have attachment points within the RA. One appears to be just above the tricuspid valve along the atrial septum. This extends to the lateral-posterior wall fo the RA. Small pericardial effusion. Mild MR. Trace TR. Normal diastolic dysfunction Rhabdomyolysis - CK elevation has come down significantly. Managed by Dr Dhaliwal Mild to mod anemia and microcytic indices - managed by Dr Dhaliwal Plan: * I called Dr Apolinar Reyes (Athletic editorial specialist and Adult Congenital Heart Disease specialist) in who has kindly agreed to see and evaluate the patient. With the patient's consent, I have sent patient's info to Dr Reyes whose office will contact the patient and make her an early appointment. I discussed all of the this in detail with the patient, her mother and with Dr Dhaliwal (patient's attending during this hospitalization). Patient's mother asked if they should also seek a neuro eval. I told her to check with Dr Dhaliwal * Pt again advised off sports or physical exertion until further notice BREEZY GARCIA MD [facility] Aug 27, 2023 13:38
[2023-08-27 16:51] VITALS: BP 125/86
[2023-08-27 17:54] VITALS: BP 125/86
== END 2023-08-27 13:41 | disposition home or self-care (01) ==
LOC: ER 14:32 → UNDOADMOB 20:08 → 4TH 20:08 → UNDODISOB 08-27 13:41
PROVIDERS: ADMIT Internal Medicine; ATTEND Family Medicine
DX: M62.82 Rhabdomyolysis (principal); D50.9 Iron deficiency anemia, unspecified; R55 Syncope and collapse; R94.31 Abnormal electrocardiogram [ECG] [EKG]; R74.01 Elevation of levels of liver transaminase levels
CPT/HCPCS: 36415; 80048; 80053; 80306; 81000; 82550; 82728; 83540; 83550; 83735; 84703; 85025; 85027; 85379; 85610; 93005; 93041; 96361; G0378